=== PATIENT | female | born 1990 | race Hispanic/Latino ===

== ENCOUNTER 2017-01-13 20:39 | Emergency (ER) | payer SELFPAY ==
[~2017-01-13] VITALS: Ht 154.9 cm; Wt 67.6 kg
[2017-01-13 21:23] LABS: ADD MIUA? YES; BILIRUBIN NEGATIVE; BLOOD NEGATIVE; COLOR YELLOW ((YELLOW)); GLUCOSE (STRIP) NEGATIVE; KETONES NEGATIVE; LEUKOCYTES NEGATIVE; NITRITE NEGATIVE; PROTEIN (STRIP) NEGATIVE; SPECIFIC GRAVITY 1.019 (1.000-1.030); UROBILINOGEN 0.2 MG/DL (0.2-1.0)
[2017-01-13 21:25] LABS: BACTERIA NONE SEEN /HPF; EPITHELIAL CELLS 1+ /HPF; MUCUS TRACE /LPF; RED BLOOD CELLS 0-5 /HPF (0-5); UCUL ADDED? NO; WHITE BLOOD CELLS 0-5 /HPF (0-5)
[2017-01-13 22:23] LABS: INTERNAL CONTROL VALID? YES
[2017-01-13] MEDS ORDERED: LIDODERM 5% P1 PATCH TD (22:46)
[2017-01-13] MEDS ORDERED: NAPROXEN500 MG PO (22:46)
[2017-01-13 23:52] VITALS: BP 118/65
== END 2017-01-13 23:54 | disposition home or self-care (01) ==
LOC: EME 20:39
PROVIDERS: Physician Assistant Medical
DX: M54.5 Low back pain (principal); R11.0 Nausea; R51 Headache; N91.2 Amenorrhea, unspecified; Z87.891 Personal history of nicotine dependence
CPT/HCPCS: 81003; 84703; 99281; 99283; J1885